=== PATIENT | male | born 1960 | race Caucasian/White ===

== ENCOUNTER → 2017-06-02 | Outpatient (CLI) | payer BC ==
[2017-06-02 14:51] LABS: ALT 45 U/L (21-72); AST 26 U/L (17-59); Alkaline Phosphatase 50 U/L (38-126); Anion Gap 12 mmol/L; Blood Urea Nitrogen 17 mg/dL (9-20); Calcium 9.8 mg/dL (8.4-10.2); Carbon Dioxide 26 mmol/L (22-30); Chloride 103 mmol/L (98-107); Glucose 107 mg/dL (74-99); Magnesium 1.9 mg/dL (1.6-2.3); Non-African American GFR(MDRD) >60 (>60 ml/min/1.73 sqM); Potassium 4.2 mmol/L (3.5-5.1); Sodium 141 mmol/L (137-145); Total Bilirubin 0.6 mg/dL (0.2-1.3); Total Protein 7.6 g/dL (6.3-8.2); Uric Acid 5.4 mg/dL (3.5-8.5)
[2017-06-02 14:53] LABS: Rheumatoid Factor, Qnt <9 IU/mL (<12)
[2017-06-02 15:02] LABS: Basophils # (A) 0.1 k/uL (0-0.2); Basophils % (A) 1 %; CH 30.7; CHCM 33.3; Eosinophils # (A) 0.3 k/uL (0-0.7); Eosinophils % (A) 4 %; HCT 48.2 % (39.0-53.0); HDW 2.37; HGB 15.5 gm/dL (13.0-17.5); Luc # (Auto) 0.11; Luc % (Auto) 2; Lymphocytes # (A) 1.9 k/uL (1.0-4.8); Lymphocytes % (A) 26 %; MCH 29.8 pg (25.0-35.0); MCHC 32.2 g/dL (31.0-37.0); MCV 92.6 fL (80.0-100.0); Mean Platelet Volume 7.2; Monocytes # (A) 0.3 k/uL (0-1.0); Monocytes % (A) 5 %; Neutrophils # (A) 4.5 k/uL (1.3-7.7); Neutrophils % (A) 63 %; RBC 5.21 m/uL (4.30-5.90); RDW 13.8 % (11.5-15.5); WBC 7.2 k/uL (3.8-10.6); WBC (Perox) 6.72
[2017-06-02 16:08] LABS: Erythrocyte Sedimentation Rate 5 mm/hr (0-15)
[2017-06-02 20:42] LABS: ANA w/Reflex to Titer NEGATIVE (NEGATIVE)
[2017-06-03 09:07] LABS: HLA B27 Comment SEEBELOW
[2017-06-03 18:30] LABS: Lyme IgG/IgM 0.1 Index; Lyme IgG/IgM Interp NEGATIVE (NEGATIVE)
[2017-06-04 05:29] LABS: Mycoplasma IgM Antibody 0.18 INDEX (<=0.90)
[2017-06-04 11:00] LABS: Candida albicans IgE Class CLASS 0; Gluten IgE Class CLASS 0
== END | disposition home or self-care (01) ==
LOC: LABWHC1 13:36
PROVIDERS: ATTEND Family Medicine
DX: M79.1 Myalgia (principal); R53.83 Other fatigue; A69.22 Other neurologic disorders in Lyme disease; H93.19 Tinnitus, unspecified ear
CPT/HCPCS: 36415; 80053; 82525; 83036; 83735; 84550; 84630; 85025; 85652; 86003; 86038; 86060; 86225; 86431; 86618; 86738; 86812; 87338

== ENCOUNTER 2017-08-01 00:39 | Emergency (ER) | payer BC ==
[2017-08-01 00:45] VITALS: RESP 18; TEMP 97.4
[2017-08-01] MEDS ORDERED: NITROGLYCERIN OINT 1 INCH/GM PACKET TOPICAL STA (01:07)
--- NOTE | 2017-08-01 01:16 | ED ---
General Adult HPI - General Chief complaint: Chest Pain Stated complaint: Chest/Shoulder Pain Time Seen by Provider: 08/01/17 00:45 Source: patient, RN notes reviewed Mode of arrival: ambulatory Limitations: no limitations - History of Present Illness Initial comments: This is a 56-year-old male who presents emergency Department complaining of left shoulder and neck pain. Patient states the pain radiates down his arm towards his elbow. Patient states it's an ache that at times gets worse but at other times it feels better but it is always been there over the last few hours. Patient denies any shortness of breath or diaphoresis. Patient does state he is nauseated with this pain. Patient states it does not feel muscular he has had quite a few problems with muscular pain in the past and even pinch nerves and this does not feel similar. He denies any recent injury denies any heavy lifting. Patient denies any recent fever chills or cough. Patient denies any abdominal pain. Patient states the pain is not worsened with any movement. Patient also states he has a strong family history. He denies any medical problems at all - Related Data Home Medications Medication Instructions Recorded Confirmed Terbinafine [LamISIL] 250 mg PO DAILY 10/22/15 12/12/15 Amoxicillin/Potassium Clav 1 each PO QAM 12/05/15 12/12/15 [Augmentin 875-125 Tablet] Multivitamins, Thera [Multivitamin] 1 tab PO DAILY 12/05/15 12/12/15 Previous Rx's Medication Instructions Recorded Amoxicillin/Potassium Clav 1 each PO Q12HR #20 tab 12/12/15 [Augmentin 875-125 Tablet] Hydrocodone/Acetaminophen [[place] 1 - 2 each PO Q6HR PRN #40 tab 12/12/15 5-325] Allergies Allergy/AdvReac Type Severity Reaction Status Date / Time steroids AdvReac mood swings Uncoded 08/01/17 00:45 Review of Systems ROS Statement: Those systems with pertinent positive or pertinent negative responses have been documented in the HPI. ROS Other: All systems not noted in ROS Statement are negative. Past Medical History Past Medical History: No Reported History Additional Past Medical History / Comment(s): sinus problems History of Any Multi-Drug Resistant Organisms: None Reported Additional Past Surgical History / Comment(s): vasectomy, sinus surgery Past Anesthesia/Blood Transfusion Reactions: No Reported Reaction Past Psychological History: No Psychological Hx Reported Smoking Status: Never smoker - Past Family History Mother Family Medical History: No Reported History General Exam - General Exam Comments Initial Comments: GENERAL: Patient is well-developed and well-nourished. Patient is nontoxic and well- hydrated and is in mild distress. ENT: Neck is soft and supple. No significant lymphadenopathy is noted. Oropharynx is clear. Moist mucous membranes. Neck has full range of motion without eliciting any pain. EYES: The sclera were anicteric and conjunctiva were pink and moist. Extraocular movements were intact and pupils were equal round and reactive to light. Eyelids were unremarkable. PULMONARY: Unlabored respirations. Good breath sounds bilaterally. No audible rales rhonchi or wheezing was noted. CARDIOVASCULAR: There is a regular rate and rhythm without any murmurs gallops or rubs. ABDOMEN: Soft and nontender with normal bowel sounds. No palpable organomegaly was noted. There is no palpable pulsatile mass. SKIN: Skin is clear with no lesions or rashes and otherwise unremarkable. NEUROLOGIC: Patient is alert and oriented x3. Cranial nerves II through XII are grossly intact. Motor and sensory are also intact. Normal speech, volume and content. Symmetrical smile. MUSCULOSKELETAL: Normal extremities with adequate strength and full range of motion. LYMPHATICS: No significant lymphadenopathy is noted PSYCHIATRIC: Normal psychiatric evaluation. Normal interpersonal interactions appears functionally intact in deals appropriately with others. No signs of depression. No signs of anxiety. Limitations: no limitations Course Vital Signs 08/01/17 08/01/17 00:41 02:03 Temperature 97.4 F L Pulse Rate 66 61 Respiratory 18 18 Rate Blood Pressure 169/81 128/77 O2 Sat by Pulse 100 100 Oximetry Medical Decision Making - Medical Decision Making EKG shows normal sinus rhythm at 60 bpm OK interval is 160 QRS is 104 QT interval 4:30 QTC is 4:30. Patient's EKG shows no ST segment elevation or depression I will begin to reevaluate the patient patient was still having left-sided shoulder pain. I told the patient I thought he should be admitted to the hospital patient refused to be admitted because he didn't want have to pay for a pill. Patient signed out AGAINST MEDICAL ADVICE understanding that it still could be his heart and he can go home and have significant symptoms and damage to his heart. - Lab Data Result diagrams: 08/01/17 01:20 08/01/17 01:20 Lab Results 08/01/17 08/01/17 08/01/17 Range/Units 01:20 01:20 01:20 WBC 6.8 (3.8-10.6) k/uL RBC 4.87 (4.30-5.90) m/uL Hgb 14.7 (13.0-17.5) gm/dL Hct 44.1 (39.0-53.0) % MCV 90.5 (80.0-100.0) fL MCH 30.1 (25.0-35.0) pg MCHC 33.3 (31.0-37.0) g/dL RDW 12.6 (11.5-15.5) % Plt Count 256 (150-450) k/uL Neutrophils % 49 % Lymphocytes % 35 % Monocytes % 7 % Eosinophils % 6 % Basophils % 1 % Neutrophils # 3.3 (1.3-7.7) k/uL Lymphocytes # 2.4 (1.0-4.8) k/uL Monocytes # 0.5 (0-1.0) k/uL Eosinophils # 0.4 (0-0.7) k/uL Basophils # 0.1 (0-0.2) k/uL PT (9.0-12.0) sec INR (<1.2) APTT (22.0-30.0) sec D-Dimer (<0.60) mg/L FEU Sodium 143 (137-145) mmol/L Potassium 4.0 (3.5-5.1) mmol/L Chloride 105 (98-107) mmol/L Carbon Dioxide 27 (22-30) mmol/L Anion Gap 11 mmol/L BUN 20 (9-20) mg/dL Creatinine 1.10 (0.66-1.25) mg/dL Est GFR (MDRD) Af Amer >60 (>60 ml/min/1.73 sqM) Est GFR (MDRD) Non-Af >60 (>60 ml/min/1.73 sqM) Glucose 100 H (74-99) mg/dL Calcium 9.5 (8.4-10.2) mg/dL Magnesium 2.1 (1.6-2.3) mg/dL Total Bilirubin 0.3 (0.2-1.3) mg/dL AST 32 (17-59) U/L ALT 54 (21-72) U/L Alkaline Phosphatase 47 (38-126) U/L Total Creatine Kinase 94 (55-170) U/L CK-MB (CK-2) 0.7 (0.0-2.4) ng/mL CK-MB (CK-2) Rel Index 0.7 Troponin I <0.012 (0.000-0.034) ng/mL NT-Pro-B Natriuret Pep pg/mL Total Protein 7.0 (6.3-8.2) g/dL Albumin 4.1 (3.5-5.0) g/dL 08/01/17 08/01/17 Range/Units 01:20 01:20 WBC (3.8-10.6) k/uL RBC (4.30-5.90) m/uL Hgb (13.0-17.5) gm/dL Hct (39.0-53.0) % MCV (80.0-100.0) fL MCH (25.0-35.0) pg MCHC (31.0-37.0) g/dL RDW (11.5-15.5) % Plt Count (150-450) k/uL Neutrophils % % Lymphocytes % % Monocytes % % Eosinophils % % Basophils % % Neutrophils # (1.3-7.7) k/uL Lymphocytes # (1.0-4.8) k/uL Monocytes # (0-1.0) k/uL Eosinophils # (0-0.7) k/uL Basophils # (0-0.2) k/uL PT 10.4 (9.0-12.0) sec INR 1.1 (<1.2) APTT 24.0 (22.0-30.0) sec D-Dimer 0.22 (<0.60) mg/L FEU Sodium (137-145) mmol/L Potassium (3.5-5.1) mmol/L Chloride (98-107) mmol/L Carbon Dioxide (22-30) mmol/L Anion Gap mmol/L BUN (9-20) mg/dL Creatinine (0.66-1.25) mg/dL Est GFR (MDRD) Af Amer (>60 ml/min/1.73 sqM) Est GFR (MDRD) Non-Af (>60 ml/min/1.73 sqM) Glucose (74-99) mg/dL Calcium (8.4-10.2) mg/dL Magnesium (1.6-2.3) mg/dL Total Bilirubin (0.2-1.3) mg/dL AST (17-59) U/L ALT (21-72) U/L Alkaline Phosphatase (38-126) U/L Total Creatine Kinase (55-170) U/L CK-MB (CK-2) (0.0-2.4) ng/mL CK-MB (CK-2) Rel Index Troponin I (0.000-0.034) ng/mL NT-Pro-B Natriuret Pep 38 pg/mL Total Protein (6.3-8.2) g/dL Albumin (3.5-5.0) g/dL Disposition Clinical Impression: Atypical angina Disposition: Left Against Medical Advice Referrals: Dwight Martinez DO [Primary Care Provider] - 1-2 days Time of Disposition: 03:07
[2017-08-01 01:33] LABS: Basophils # (A) 0.1 k/uL (0-0.2); Basophils % (A) 1 %; Eosinophils # (A) 0.4 k/uL (0-0.7); Eosinophils % (A) 6 %; HCT 44.1 % (39.0-53.0); HGB 14.7 gm/dL (13.0-17.5); Lymphocytes # (A) 2.4 k/uL (1.0-4.8); Lymphocytes % (A) 35 %; MCH 30.1 pg (25.0-35.0); MCHC 33.3 g/dL (31.0-37.0); MCV 90.5 fL (80.0-100.0); Mean Platelet Volume 6.4; Monocytes # (A) 0.5 k/uL (0-1.0); Monocytes % (A) 7 %; Neutrophils # (A) 3.3 k/uL (1.3-7.7); Neutrophils % (A) 49 %; Platelet Count 256 k/uL (150-450); RBC 4.87 m/uL (4.30-5.90); RDW 12.6 % (11.5-15.5); WBC 6.8 k/uL (3.8-10.6)
[2017-08-01 01:45] LABS: ALT 54 U/L (21-72); AST 32 U/L (17-59); Albumin 4.1 g/dL (3.5-5.0); Alkaline Phosphatase 47 U/L (38-126); Anion Gap 11 mmol/L; Blood Urea Nitrogen 20 mg/dL (9-20); Calcium 9.5 mg/dL (8.4-10.2); Carbon Dioxide 27 mmol/L (22-30); Chloride 105 mmol/L (98-107); Glucose 100 mg/dL (74-99); Magnesium 2.1 mg/dL (1.6-2.3); Sodium 143 mmol/L (137-145); Total Bilirubin 0.3 mg/dL (0.2-1.3)
[2017-08-01 01:46] LABS: D-Dimer 0.22 mg/L FEU (<0.60)
[2017-08-01 01:52] LABS: INR 1.1 (<1.2); Prothrombin Time 10.4 sec (9.0-12.0)
--- NOTE | 2017-08-01 01:56 | XR ---
EXAMINATION TYPE: XR chest 2V DATE OF EXAM: 08/01/2017 COMPARISON: NONE HISTORY: Chest pain TECHNIQUE: Frontal and lateral views of the chest are obtained. FINDINGS: Heart and mediastinum are normal. Lungs are clear. Diaphragm is normal. There is some mild calcified pleural plaque on the left lateral chest wall. There are chest leads. There is no pleural effusion. IMPRESSION: No active cardiopulmonary disease. Mild left-sided pleural calcification. Normal heart.
[2017-08-01 01:59] LABS: Creatine Kinase 94 U/L (55-170)
[2017-08-01 02:05] VITALS: BP 128/77; PULSE 61
[2017-08-01 02:12] LABS: Creatine Kinase MB 0.7 ng/mL (0.0-2.4); Troponin I <0.012 ng/mL (0.000-0.034)
== END 2017-08-01 03:23 | disposition left against medical advice (07) ==
LOC: EC 00:39
DX: I20.9 Angina pectoris, unspecified (principal); Z79.899 Other long term (current) drug therapy; Z88.8 Allergy status to other drugs, medicaments and biological substances
CPT/HCPCS: 36415; 71046; 80053; 82550; 82553; 83735; 83880; 84484; 85025; 85379; 85610; 85730; 99285